=== PATIENT | male | born 1950 | race Caucasian/White ===

== ENCOUNTER 2017-08-05 08:12 | Outpatient (CLI) | payer OTHER ==
--- NOTE | ~2017-08-05 | OP ---
PATIENT NAME: NUVIA BOOKER MEDICAL RECORD: [id number] :54 LOCATION:LEELE[place] ADMISSION DATE: SURGEON: SANTIAGO SHER MD DATE OF OPERATION: 08/05/2017 PROCEDURE: Fiberoptic bronchoscopy. INDICATION: Mr. Booker is a 67-year-old gentleman who has a nonresolving pneumonia on the CT scan right middle lobe. Fiberoptic bronchoscopy was carried out to inspect the airway for any obstructive lesion. MONITORING: EKG, pulse, and blood pressure were monitored throughout the procedure. MEDICATIONS: Versed 7 mg IV in divided doses, fentanyl 100 mcg IV in divided doses, atropine 0.6 mg IM, morphine 4 mg IM. PROCEDURE IN DETAIL: After passing the bronchoscope through the mouth, the vocal cords were normal, moving equally on phonation. The epiglottis was normal. The vallecula was normal. The main trachea was normal. The héctor was sharp. The left main bronchus subsegment to the left upper lobe lingula, left lower lobe within normal range. No endobronchial lesion was seen. The right main bronchus was normal at start. At the origin of the right upper lobe segment, there was mucosal abnormality with folding. There was sparing of the right upper lobe segment and superior segment of the right lower lobe segment. There were also mucosal abnormalities all the way up from the origin of the right upper lobe segment to the right lower lobe segment. There was no mass was seen as such. The right middle lobe segments were patent. There was thick yellowish secretion coming out from the right middle lobe. Specimen endobronchial biopsy was taken at the takeoff of the superior segment of the right lower lobe. Washing was obtained from the right lower lobe, right middle lobe, and the superior segment of the right lower lobe segments. Specimen washing and endobronchial biopsy was obtained and sent for histopathology, routine culture sensitivity, fungus and cytology. COMPLICATIONS: There was nearly 2-3 mL blood loss. Overall, the patient tolerated the procedure very well. I discussed with the family, we will proceed with a PET scan. TRANSINT:[id number] Voice Confirmation ID: [id number] DOCUMENT ID: [id number] SANTIAGO SHER MD at 1340 CC: JENNI KIM [id number] DICTATION DATE: 08/05/17 1056 CONVENTIONS RESERVATIONIST: 08/05/17 1201 DEP CLI 08/05/17 [id number] [facility] [place] [address]
[2017-08-05] MEDS ORDERED: PROAIR HFA8.5 GM INH (08:48)
[2017-08-05] MEDS ORDERED: GLUCOPHAGE1000 MG PO (08:48)
[2017-08-05 08:54] LABS: APTT 24.3 SECONDS (22.8-39.4); INR 0.97 (0.85-1.17); PROTIME 12.5 SECONDS (11.6-15.0)
[2017-08-05 08:55] LABS: BASOPHILS 0.4 % (0-2); EOSINOPHILS 2.1 % (0-7); HEMATOCRIT 40.8 % (42.0-54.0); HEMOGLOBIN 14.1 g/dL (13.5-17.5); IMMATURE GRANULOCYTES 0.4 % (0-5); LYMPHOCYTES 29.2 % (15-50); MCH 29.9 pg (26.0-34.0); MCHC 34.6 g/dL (31.0-37.0); MCV 86.4 fL (80.0-100.0); MEAN PLATELET VOLUME 8.9 fL (7.4-10.4); MONOCYTES 10.6 % (2-11); NEUTROPHILS 57.3 % (40-80); PLATELET COUNT 249 10x3/uL (130-400); RBC 4.72 10x6/uL (4.20-6.10); RDW 12.9 % (11.5-14.5); WBC 8.2 10x3/uL (4.8-10.8)
[2017-08-06 18:10] LABS: AFB SPECIMEN PROCESSING Concentration (())
[2017-08-08 11:20] LABS: FUNGUS STAIN Final report (())
[2017-09-02 16:14] LABS: FUNGUS MYCOLOGY CULTURE Final report (())
[2017-09-30 10:22] LABS: ACID FAST CULTURE Negative (()); ACID FAST SMEAR Negative (())
== END 2017-08-05 15:20 | disposition home or self-care (01) ==
LOC: D.OPS 08:12
PROVIDERS: Internal Medicine Pulmonary Disease
DX: J18.9 Pneumonia, unspecified organism (principal); R59.0 Localized enlarged lymph nodes; K21.9 Gastro-esophageal reflux disease without esophagitis; J44.9 Chronic obstructive pulmonary disease, unspecified; Z87.891 Personal history of nicotine dependence; Z01.812 Encounter for preprocedural laboratory examination

== ENCOUNTER → 2017-09-18 07:12 | Outpatient (CLI) | payer OTHER ==
[~2017-09-18 07:12] MED LIST: AUGMENTIN 875-11 TAB PO; GLUCOPHAGE1000 MG PO; MEDROL DOSE PACK4 MG PO; MIRALAX17 GM PO; MUCINEX600 MG PO; PROAIR HFA8.5 GM INH; SYMBICORT 16010.2 GM INH
== END | disposition home or self-care (01) ==
LOC: D.RT 07:12
DX: R91.8 Other nonspecific abnormal finding of lung field (principal)

== ENCOUNTER 2017-09-24 05:00 | Day surgery (SDC) | payer OTHER ==
[2017-09-23 15:35] LABS: BASOPHILS 0.2 % (0-2); EOSINOPHILS 2.5 % (0-7); HEMATOCRIT 41.3 % (42.0-54.0); HEMOGLOBIN 14.3 g/dL (13.5-17.5); IMMATURE GRANULOCYTES 0.5 % (0-5); LYMPHOCYTES 34.6 % (15-50); MCHC 34.6 g/dL (31.0-37.0); MCV 86.8 fL (80.0-100.0); MONOCYTES 9.7 % (2-11); NEUTROPHILS 52.5 % (40-80); PLATELET COUNT 254 10x3/uL (130-400); RBC 4.76 10x6/uL (4.20-6.10); RDW 13.2 % (11.5-14.5); WBC 8.8 10x3/uL (4.8-10.8)
[2017-09-23 15:44] LABS: INR 0.87 (0.85-1.17); PROTIME 11.5 SECONDS (11.6-15.0)
[2017-09-23 15:45] LABS: APTT 24.5 SECONDS (22.8-39.4)
[2017-09-23 15:48] LABS: ALBUMIN 3.7 g/dL (3.4-5.0); ALKALINE PHOSPHATASE 102 U/L (46-116); ALT (SGPT) 26 U/L (10-68); BILIRUBIN - TOTAL 0.29 mg/dL (0.2-1.3); CALC OSMOLALITY 280 mosm/kg (275-300); CALCIUM 8.9 mg/dL (8.5-10.1); CARBON DIOXIDE 26.6 mmol/L (21.0-32.0); CHLORIDE - SERUM 102 mmol/L (98-107); GLUCOSE 159 mg/dL (74-106); POTASSIUM - SERUM 3.8 mmol/L (3.5-5.1); PROTEIN - SERUM 7.7 g/dL (6.4-8.2); SODIUM 139 mmol/L (136-145); UREA NITROGEN 13 mg/dL (7-18); eGFR NON AFRICAN AMERICAN 80 mL/min (90-120)
[2017-09-23 16:19] LABS: APPEARANCE CLEAR (CLEAR); BILIRUBIN NEGATIVE (NEGATIVE); COLOR YELLOW (YELLOW); GLUCOSE NEGATIVE (NEGATIVE); KETONE NEGATIVE (NEGATIVE); NITRITE NEGATIVE (NEGATIVE); PROTEIN NEGATIVE (NEGATIVE); UROBILINOGEN NORMAL (NORMAL)
[~2017-09-24] VITALS: Ht 177.8 cm; Wt 106.1 kg
--- NOTE | ~2017-09-24 | HP ---
PATIENT: NUVIA COOK MEDICAL RECORD: [id number] ACCOUNT: [id number] LOCATION:D.OPS : 52 ADMISSION DATE: 09/24/17 HISTORY AND PHYSICAL EXAMINATION NUVIA Bhatia (67yo, M) ID# [id number]. Date/Time09/17/2017 01:09CADGM1952Service Dept.NPP_[facility] ClinicProviderEDDEMETRI POOL MDInsuranceMed Primary: [facility] - [employer] Insurance # : [id number] Policy/Group # : [id number] Referring Provider Name : RENEE WRIGHT Employer Name : UNKNOWN Prescription: DSTPS - Member is eligible. Chief Complaint Mediastinal mass Patient's Care Team Referring Provider (): RENEE WRIGHT D: [facility], [address] [place] [phone], , Primary Care Provider: JENNI KIM DO: [address] [place] [phone], , Cardboard Inserter: EIMLY PAUL MD Patient's Pharmacies [facility] (ERX): [address] [facility] [phone], , Vitals BP:150/78 sitting R arm 09/17/2017 01:39 pm 154/80 sitting L arm 09/17/2017 01:40 pmHR:72/REG 09/17/2017 01:41 pmHt:5 ft 10 in 09/17/2017 01:31 pmWt:210 lbs 09/17/2017 01:41 pmBMI:30.1 09/17/2017 01:41 pmAllergies Reviewed Allergies NKDAMedications Reviewed Medications metFORMIN 1,000 mg tablet BID07/22/17 filledArgMattersight SystemsProAir HFA 90 mcg/actuation aerosol inhaler QID07/22/17 [facility] Scivantage SystemsVaccines Reviewed Vaccines Vaccine TypeDateAmt.RouteSiteLot #Mfr.Exp. DateDate on VISVIS GivenVaccinatorInfluenzainfluenza, injectable, nwiadppplxef61/12/18Problems Reviewed Problems Diabetes mellitus - Onset: 07/31/2017 Mediastinal lymphadenopathy - Onset: 09/09/2017 Family History Reviewed Family History Mother- Carcinoma of colonSocial History Reviewed Social History Cardiology Smoking Status: Never smoker Diabetes: Y Alcohol intake: None Marital status: Surgical History HISTORY AND PHYSICAL [id number] NUVIA COOK Reviewed Surgical History Bronchoscopy - 08/05/2017 Bronchoscopy - 08/05/2017 Past Medical History Reviewed Past Medical History Diabetes: Y - niidm Documents for Discussion N/A Screening None recorded. HPI Dyspnea Reported by patient. Quality: dyspnea; can't catch breath Severity: moderate Duration: for 2 years Onset/Timing: daily; at night; during daytime; wakes from sleep Context: with activity; at rest; when lying down Alleviating Factors: sitting up; relieved with inhaler Aggravating Factors: "WORSE WHEN LAYING FLAT" Associated Symptoms: chest pain/discomfort; fever mediastinal adenopathy Right middle lobe syndrome ROS Patient reports difficulty hearing but reports no ear pain. He reports shortness of breath when walking and shortness of breath when lying down but reports no chest pain, no arm pain on exertion, no palpitations, and no known heart murmur. He reports cough, wheezing, and shortness of breath but reports no coughing up blood. He reports muscle aches, muscle weakness, and arthralgias/joint pain but reports no back pain and no swelling in the extremities. He reports fatigue, hair loss, and cold intolerance. He reports no fever , no night sweats, no significant weight gain, no significant weight loss, and no exercise intolerance. He reports no dry eyes, no irritation, and no vision change. He reports no frequent nosebleeds and no nose/sinus problems. He reports no sore throat, n o bleeding gums, no snoring, no dry mouth, no mouth ulcers, no oral abnormalities, and no teeth problems. He reports no jugular vein distension and no swollen glands. He reports no abdominal pain, no vomiting, normal appetite, no diarrhea, not vomiting blo o d, no nausea, and no constipation. He reports no incontinence, no difficulty urinating, no hematuria, and no increased frequency. He reports no abnormal mole, no jaundice, and no rashes. He reports no loss of consciousness, no weakness, no numbness, no se i zures, no dizziness, and no headaches. He reports no depression, no sleep disturbances, feeling safe in relationship, and no alcohol abuse. He reports no swollen glands and no bruising. He reports no runny nose, no sinus pressure, no itching, no hives, an d no frequent sneezing. ROS as noted in the HPI Physical Exam Patient is a 67-year-old male. Constitutional: General Appearance: well nourished and well developed. Level of Distress: no acute distress. Ambulation: ambulating normally. Ears: Cerumen negative. Canal: no erythema or swelling. Tympanic Membrane: no bulging or fluid and perforated. HISTORY AND PHYSICAL [id number] NUVIA COOK Nasal: Nasal Mucosa: normal, no discharge, and pink and moist. Septum: not markedly deformed. Oropharynx: Lips, Teeth, and Gums normal dentition and lips. Oral Mu cosa no ulcer, mass, inflammation, swelling, or leukoplakia and moist. Palate: normal hard palate and soft palate. Tongue: no erythema, lesions, enlargement, or swelling. Tonsils: no enlargement or lesions. Posterior Pharynx no enlargement, erythema, exud ate, ulcers, mass, cobblestoning, or white patches. Neck: Neck: supple, trachea midline, no masses, and Full ROM. Thyroid: no enlargement or nodules and non-tender. Jugular Veins: no jugular venous distention or rose a waves present and normal jugular venous pressure. Lungs: Respiratory effort: unlabored. Inspection: normal curve and chest wall expansion; no deformity, tenderness, or swelling; and tactile fremitus present and equal on both sides. Auscultation: no rales/crackles or rhonchi and breath sounds normal and wheezing,expiratory,right midlung field. Percussion: no dullness, flatness, or hyperresonance. Cardiovascular: Precordial Exam: non displaced focal PMI. Heart Rate And Rhythm: normal heart rate and rhythm. Heart Sounds: no gallop, click, physiologically split S2, or pericardial friction rub and normal s1. Systolic Murmur: no systolic murmurs. Diastolic Murmur: no diastolic murmurs. Observation/Palpation of peripheral vascular system: no cyanosis. Abdomen: Inspection and Palpation: no tenderness or masses and soft and non-distended. Liver: non-tender and no hepatomegaly. Spleen: non-tender and no splenomegaly. Bowel Sounds: normal and no abdominal bruits. Lymphatic: no cervical lymph enlargement, axillary LAD, or supraclavicular LAD . Musculoskeletal:: Gait and Station: normal gait. Extremities: Inspection/Palpation of digits and nails: no clubbing, cyanosis, petechiae, ischemia, edema, or nodular lesions. Skin: Inspection and palpation: no rash, lesions, jaundice, ulcer, erythema, or induration and normal turgor. Neurologic: Mental Status/Orientation: oriented to person, place, problem/situation, and time. Mood/Affect: normal mood and affect. Sensation sensation normal. Cranial Nerves cranial nerves II - XII intact. Assessment / Plan mediastinal adenopathy Right middle lobe syndrome 1. Mediastinal lymphadenopathy R59.0: Localized enlarged lymph nodes Discussion Notes I have discussed the patient's disease process with him in detail as well as the alternative methods of treatment. We discussed bronchoscopy and mediastinoscopy including the expected benefits and risks which include bleeding, infection, stroke, , and imponderables. He understands all of the above and wishes to proceed with planned procedure. Obtain pulmonary function studies in 6 minute walk test HISTORY AND PHYSICAL [id number] NUVIA COOK We'll then schedule for bronchoscopy and mediastinoscopy ALEJANDRA POOL MD at 1448 CC: [id number] DICTATION DATE: 09/17/17 1330 RIBBON TIER: DM 09/23/17 0851 [facility] 09/24/17 [id number] [place] [address]
--- NOTE | ~2017-09-24 | OP ---
PATIENT NAME: NUVIA COOK MEDICAL RECORD: [id number] :54 LOCATION:D.OPS ADMISSION DATE: SURGEON: ALEJANDRA SCOTT MD DATE OF OPERATION: 09/24/2017 SURGEON: Alejandra Scott MD ANESTHESIA: General, Dr. Esquivel. OPERATION PERFORMED: 1. Mediastinoscopy with biopsies. 2. Flexible fiberoptic bronchoscopy with bronchial washings and bronchial biopsies. PREOPERATIVE DIAGNOSIS: Mediastinal adenopathy. POSTOPERATIVE DIAGNOSIS: Mediastinal adenopathy. INDICATION FOR OPERATION: Undiagnosed mediastinal lymphadenopathy. FINDINGS OF THE OPERATION: Lymphadenopathy with paratracheal lymphadenopathy. Frozen section demonstrated no malignancy, chronic inflammation with microcalcification. Flexible fiberoptic bronchoscopy demonstrated cobblestone mucosa, left upper lobe. Cultures were sent for aerobe, anaerobe, TB and fungus on the bronchial washings. The bronchial mucosal biopsies were sent for histology. The multiple lymph node biopsies were sent to pathology for further evaluation. ESTIMATED BLOOD LOSS: Less than 3 mL. DESCRIPTION OF PROCEDURE: After informed consent, adequate preoperative medication evaluation, the patient was brought to the operating room, placed on the table in the supine position. After induction of general endotracheal anesthesia and application of appropriate monitoring devices, the neck and chest prepped and draped in sterile field, utilizing Betadine scrub, alcohol, and Betadine solution. Betadine-impregnated drape was also used. A small transverse incision was made 2 cm above the sternal notch. Dissection carried down to the fascia. The midline was opened. The isthmus of the thyroid was elevated cephalad and the pretracheal fascia entered. The scope was placed. Utilizing sharp and blunt dissection, the scope was advanced to the héctor. There was a large left paratracheal node that was very hard. This was biopsied multiple times. Attention was then turned toward the subcarinal area. Another node was encountered and biopsies taken. An additional anterior tracheal node was also biopsied. Frozen section demonstrated no malignancy and chronic inflammation. The wound was irrigated. Instrument count and sponge count were correct times 2. Neck was closed in layers utilizing 3-0 Vicryl on the platysma, 5-0 subcuticular Monocryl on the skin. Sterile dressing was applied. The patient then underwent flexible fiberoptic bronchoscopy with bronchial washings from the left upper and left lower lobes. These were sent for cultures and cytology. In the upper lobe, random biopsies were performed in the cobblestone mucosal area. OPERATIVE REPORT [id number] NUVIA COOK There was no bleeding. The scope was withdrawn. The patient awakened and transferred to postanesthesia recovery in satisfactory condition. TRANSINT:[id number] Voice Confirmation ID: [id number] DOCUMENT ID: [id number] ALEJANDRA SCOTT MD at 1448 CC: [id number] DICTATION DATE: 09/24/17910 CLAIMS COORDINATOR: 09/24/17 1238 [facility] 09/24/17 [address] [id number] [place] [address]
[~2017-09-24 05:00] MED LIST changes: -AUGMENTIN 875-11 TAB PO; -MEDROL DOSE PACK4 MG PO; -MIRALAX17 GM PO; -MUCINEX600 MG PO; -SYMBICORT 16010.2 GM INH
[2017-09-24 05:24] VITALS: BP 137/84; Ht 177.8 cm; Wt 106.1 kg
[2017-09-25 18:11] LABS: ACID FAST SMEAR Negative (()); AFB SPECIMEN PROCESSING Concentration (())
[2017-09-25 18:11] LABS: ACID FAST SMEAR Negative (()); AFB SPECIMEN PROCESSING Concentration (())
[2017-09-26 12:17] LABS: FUNGUS STAIN Final report (())
[2017-09-26 12:17] LABS: FUNGUS STAIN Final report (())
[2017-10-27 15:09] LABS: FUNGUS MYCOLOGY CULTURE Final report (())
[2017-10-27 15:09] LABS: FUNGUS MYCOLOGY CULTURE Final report (())
== END 2017-09-24 10:50 | disposition home or self-care (01) ==
LOC: D.OPS 05:00 → D.PAN 07:30 → D.OPS 07:30
PROVIDERS: Internal Medicine Cardiovascular Disease
DX: R59.0 Localized enlarged lymph nodes (principal); E11.9 Type 2 diabetes mellitus without complications; K21.9 Gastro-esophageal reflux disease without esophagitis; Z01.812 Encounter for preprocedural laboratory examination

== ENCOUNTER 2017-10-02 08:23 | Inpatient (IN) | payer OTHER ==
[~2017-10-02] VITALS: Ht 177.8 cm; Wt 107.5 kg
--- NOTE | ~2017-10-02 | CN ---
PATIENT NAME:NUVIA BOOKER MEDICAL RECORD: [id number] : 54 LOCATION:D. D.2134 ADMIT DATE: 10/02/17 ACCOUNT: [id number] CONSULTING PHYSICIAN: SANTIAGO SHER MD REFERRING PHYSICIAN: GORDON POOL MD DATE OF CONSULTATION: 10/02/2017 CONSULT REQUESTING PHYSICIAN: Gordon Pool MD REASON FOR CONSULTATION: Right middle lobe syndrome, right middle lobe atelectasis and pneumonia. HISTORY OF PRESENT ILLNESS: Mr. Booker is a 67-year-old gentleman who was initially seen by me with abnormal CT scan of the chest and pneumonia of the right middle lobe. Initial bronchoscopy showed that there is squamous metaplasia of the bronchial tube, but the cultures were negative. The PET scan was positive, especially mediastinal lymphadenopathy and he underwent by the mediastinoscopy, lymph node biopsy by Dr. Pool. The biopsy was negative for any malignancy, lymphoma, or granulomatous process. There was some patchy calcifications. Now, the patient was seen in Dr. Pool's office. The patient is complaining of orthopnea, PND, and shortness of breath. He denies any fever and chill. There are no night sweats. There is no weight loss. He has dyspnea on exertion as well as orthopnea. REVIEW OF SYSTEMS: As in history of present illness. PAST MEDICAL HISTORY: 1. COPD. 2. History of pneumonia. 3. Mediastinal lymphadenopathy. 4. Constipation. PAST SURGICAL HISTORY: 1. Back surgery. 2. Appendectomy. 3. Pelvic bone ligament repair surgery after a crush injury. 4. Ear surgery for hearing loss. ALLERGIES: No known drug allergies. MEDICATIONS: [employer] [place] is reviewed. PERSONAL AND SOCIAL HISTORY: The patient has a remote history of smoking. He is a nondrinker. FAMILY HISTORY: Significant for cancer and diabetes. PHYSICAL EXAMINATION: GENERAL: Now, the patient is lying comfortably in bed. He is not in acute distress. VITAL SIGNS: The blood pressure is 139/83, pulse is 97, respiration is 20, SpO2 94% on room air, temperature 97.9. HEENT: Conjunctivae are pink. Sclerae are not icteric. NECK: Supple. No JVD, no lymphadenopathy, no bruits. CHEST: There is a crackle at the right side. No wheezing. CONSULT REPORT [id number] BROWN,NUVIA FELICITA HEART: Rate and rhythm regular, normal sound, no murmur. ABDOMEN: Soft, bowel sounds present. No hepatosplenomegaly. RECTAL: Deferred. EXTREMITIES: No cyanosis, no clubbing, no pedal edema. CENTRAL NERVOUS SYSTEM: The patient is awake and alert. There is no obvious cranial nerve abnormality. The gait was not tested. IMPRESSION: 1. Dyspnea secondary to right middle lobe pneumonia. 2. Chronic obstructive pulmonary disease acute exacerbation. 3. Orthopnea. 4. Right middle lobe pneumonia. 5. Mediastinal lymphadenopathy. The biopsy was negative. The PET scan was positive. 6. Ex-smoker. RECOMMENDATION: 1. Start on Zosyn and Levaquin to cover for anaerobes and Gram-negative kathe. 2. Methylprednisolone IV. 3. Albuterol/ipratropium nebulizer. 4. Brovana, budesonide nebulizer. 5. Supplemental oxygen if required. 6. Check proBNP, follow up labs and chest radiograph in the morning. We will proceed with fiberoptic bronchoscopy in the morning. Discussed with Dr. Pool as well as with the family. Dr. Pool, thank you for involving me in the care of Mr. Booker. TRANSINT:[id number] Voice Confirmation ID: [id number] DOCUMENT ID: [id number] SANTIAGO SHER MD at 1208 CC: JENNI KIM [id number] DICTATION DATE: 10/02/17 1623 MACHINE OVERHAULER: 10/02/17 1756 DIS IN 10/05/17 [id number] [place] [address]
--- NOTE | ~2017-10-02 | PRO ---
PATIENT:NUVIA BOOKER MEDICAL RECORD: [id number] : 54 LOCATION:D.M2 D.2134 ADMISSION DATE: 10/02/17 PROCEDURE PERFORMED BY: SANTIAGO SHER MD DATE OF PROCEDURE: 10/03/2017 PROCEDURE: Fiberoptic bronchoscopy. INDICATION: Mr. Booker is a 67-year-old gentleman who was admitted with shortness of breath and atelectasis and collapse of the right middle lobe. There is significant lymphadenopathy. MONITORING: EKG, pulse, blood pressure, SpO2 were monitored throughout the procedure. MEDICATIONS: Morphine 4 mg IM, Versed 3 mg IV in divided doses, and fentanyl 50 mcg times 1. PROCEDURE IN DETAIL: Mr. Booker is a 67-year-old gentleman who has mediastinal lymphadenopathy as well as atelectasis and pneumonia of the right middle lobe. Fiberoptic bronchoscopy was carried out to inspect the airway and for any mucus plugging and any endobronchial lesion. The epiglottis was normal. There was atrophy of the right vocal cord, moving equally on phonation. The pyriform sinuses were normal. The main trachea was normal. The héctor was sharp. The right main bronchus was normal. There was anatomical variation of the right upper lobe segments. The right middle lobe bronchus was patent. The subsegment to the right lower lobe was within normal range. They were patent. There was mucosal abnormality and there was also cobblestoning of the bronchial wall. No endobronchial lesion was seen. The left main bronchus subsegment to the left upper lobe, left lower segment within normal range. There was no endobronchial lesion was seen. Specimen washing was obtained from the right middle lobe and right lower lobe, sent for routine culture and sensitivity, AFB, and fungus. Overall, the patient tolerated the procedure very well. TRANSINT:[id number] Voice Confirmation ID: [id number] DOCUMENT ID: [id number] SANTIAGO SHER MD at 1208 CC: [id number] DICTATION DATE: 10/03/17 1825 SUPERVISOR CONCR[employer] PLANT: 10/04/17 0113 DIS [place] 10/05/17 [facility] [address] [place] [id number]
--- NOTE | ~2017-10-02 | HP ---
PATIENT: NUVIA COOK MEDICAL RECORD: [id number] ACCOUNT: [id number] LOCATION:[address] : 54 ADMISSION DATE: 10/02/17 HISTORY AND PHYSICAL EXAMINATION NUVIA Bhatia (67yo, M) ID# [id number]. Date/Time10/02/2017 09:[id number] Dept.NPP_[facility] ClinicProviderDEMETRI POOL MDInsuranceMed Primary: [facility] - [employer] Insurance # : [id number] Policy/Group # : [id number] Referring Provider Name : RENEE WRIGHT Employer Name : UNKNOWN Prescription: DSTPS - Member is eligible. 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 Helper: EMILY PAUL MD Patient's Pharmacies [facility] (ERX): [id number] [facility] [id number], , Vitals BP:144/82 sitting R arm 10/02/2017 09:37 amHR:62/REG 10/02/2017 09:37 amHt:5 ft 10 in 10/02/2017 09:33 amWt:235.6 lbs 10/02/2017 09:38 amBMI:33.8 10/02/2017 09:38 amAllergies Reviewed Allergies NKDAMedications Reviewed Medications metFORMIN 1,000 mg tablet BID07/22/17 [facility] [employer] [facility] HFA 90 mcg/actuation aerosol inhaler QID07/22/17 [facility] Reviewed Vaccines Vaccine TypeDateAmt.RouteSCritical access hospital #Mfr.Exp. DateDate on VISVIS GivenVaccinatorInfluenzainfluenza, injectable, odstxyzhtsct33/12/18Problems Reviewed Problems Diabetes mellitus - Onset: 07/31/2017 Mediastinal lymphadenopathy - Onset: 09/09/2017 Family History Reviewed Family History Mother- Carcinoma of colonSocial History Reviewed Social History Cardiology Smoking Status: Never smoker HISTORY AND PHYSICAL [id number] NUVIA COOK Diabetes: Y Alcohol intake: None Marital status: Surgical History Reviewed Surgical History Mediastinoscpy w/medstnl bx - 09/24/2017 - WITH BRONCH Bronchoscopy - 08/05/2017 Bronchoscopy - 08/05/2017 09/23/17 no PA required for 09/24/17 procedure per [employer] automated system. Ref #: [id number]. *SJ Past Medical History Reviewed Past Medical History Diabetes: Y - niidm Documents for Discussion N/A Screening None recorded. HPI Post-Op Visit Reported by patient. Onset/Timing: date of surgery:; 09/24/17 Quality: procedure:; MEDIASTINOSCOPY WITH BX; BRONCHOSCOPY Context: operative findings:; pathology findings: mmediastinal adenopathy Dyspnea ROS Patient reports difficulty hearing but reports no ear pain. He reports shortness of breath when walking and shortness of breath when lying down but reports no chest pain, no arm pain on exertion, no palpitations, and no known heart murmur. He reports cough, wheezing, and shortness of breath but reports no coughing up blood. He reports muscle aches, muscle weakness, and arthralgias/joint pain but reports no back pain and no swelling in the extremities. He reports fatigue, hair loss, and cold intolerance. He reports no fever, no night sweats, no significant weight gain, no sign ificant weight loss, and no exercise intolerance. He reports no dry eyes, no irritation, and no vision change. He reports no frequent nosebleeds and no nose/sinus problems. He reports no sore throat, no bleeding gums, no snoring, no dry mouth, no mouth ul c ers, no oral abnormalities, and no teeth problems. He reports no jugular vein distension and no swollen glands. He reports no abdominal pain, no vomiting, normal appetite, no diarrhea, not vomiting blood, no nausea, and no constipation. He reports no inco n tinence, no difficulty urinating, no hematuria, and no increased frequency. He reports no abnormal mole, no jaundice, and no rashes. He reports no loss of consciousness, no weakness, no numbness, no seizures, no dizziness, and no headaches. He reports no depression, no sleep disturbances, feeling safe in relationship, and no alcohol abuse. He reports no swollen glands and no bruising. He reports no runny nose, no sinus pressure, no itching, no hives, and no frequent sneezing. Physical Exam Patient is a 67-year-old male. Constitutional: General Appearance: well nourished and well developed. Level of Distress: no acute distress. Ambulation: ambulating normally. Ears: Cerumen negative. Canal: no erythema or swelling. Tympanic Membrane: no HISTORY AND PHYSICAL [id number] BROWN,NUVIA FELICITA bulging or fluid and perforated. Nasal: Nasal Mucosa: normal, no discharge, and pink and moist. Septum: not markedly deformed. Oropharynx: Lips, Teeth, and Gums normal dentition and lips. Oral Mucosa no ulcer, mass, inflammation, swelling, or leukoplakia and moist. Palate: normal hard palate and soft palate. Tongue: no erythema, lesions, enlargement, or swelling. Tonsils: no enlargement or lesions. Posterior Pharynx no enlargement, erythema, exudate, ulcers, mass, cobblestoning, or white patches. Neck: Neck: supple, trachea midline, no masses, and Full ROM; neck incision healing well. Thyroid: no enlargement or nodules and non-tender. Jugular Veins: no jugular venous distention or rose a waves present and normal jugular venous pressure. Lungs: Respiratory effort: unlabore d. Inspection: normal curve and chest wall expansion; no deformity, tenderness, or swelling; and tactile fremitus present and equal on both sides. Auscultation: no rales/crackles or rhonchi and breath sounds normal and wheezing,expiratory,right midlung field. Percussion: no dullness, flatness, or hyperresonance. Cardiovascular: Precordial Exam: non displaced focal PMI. Heart Rate And Rhythm: normal heart rate and rhythm. Heart Sounds: no gallop, click, physiologically split S2, or pericardial friction rub and normal s1. Systolic Murmur: no systolic murmurs. Diastolic Murmur: no diastolic murmurs. Observation/Palpation of peripheral vascular system: no cyanosis. Abdomen: Inspection and Palpation: no tenderness or masses and soft and non-distended. Liver: no n-tender and no hepatomegaly. Spleen: non-tender and no splenomegaly. Bowel Sounds: normal and no abdominal bruits. Lymphatic: no cervical lymph enlargement, axillary LAD, or supraclavicular LAD. Musculoskeletal:: Gait and Station: normal gait. Extremities: Inspection/Palpation of digits and nails: no clubbing, cyanosis, petechiae, ischemia, edema, or nodular lesions. Skin: Inspection and palpation: no rash, lesions, jaundice, ulcer, erythema, or induration and normal turgor. Neurologic: Mental Status/Orientation: oriented to person, place, problem/situation, and time. Mood/Affect: normal mood and affect. Sensation sensation normal. Cranial Nerves cranial nerves II - XII intact. Assessment / Plan right middle lobe syndrome Mediastinal adenopathy 1. Mediastinal lymphadenopathy R59.0: Localized enlarged lymph nodes Discussion Notes the patient continues progressive shortness of breath Weight gain Chest x-ray right middle lobe syndrome With progressive shortness breath and dyspnea unable to lie flat at night think that HISTORY AND PHYSICAL [id number] NUVIA COOK he would benefit from admission and further workup ALEJANDRA POOL MD at 1448 CC: [id number] DICTATION DATE: 10/02/17 0940 ENROLLMENT NURSE: 10/02/17 1107 ADM IN [place] [id number] [place] [id number]
--- NOTE | ~2017-10-02 | EC ---
PATIENT:NUVIA COOK DATE OF SERVICE: 10/02/17 SEX: M MEDICAL RECORD: [id number] DATE OF : 54 LOCATION:D.M2 D.213 AGE OF PATIENT: 67 ADMISSION DATE: 10/02/17 REFERRING PHYSICIAN: INTERPRETING PHYSICIAN: CARY VALADEZ MD ECHOCARDIOGRAM REPORT ECHO CHARGES 4 ECHO COMPLETE Date: 10/02 CLINICAL DIAGNOSIS: MEDIASTINAL LYMPHADENOPATY, RML SYNDROME ECHOCARDIOGRAPHIC MEASUREMENTS (adult normal given) AC root (d.<3.7cm) 4.2 cm LV Septum d (<1.2 cm> 1.6 cm Valve Excursion 2.2 cm LV Septum (systole) 1.7 cm Left Atria (s.<4.0cm> 3.9 cm LVPW d(<1.2cm) 1.6 cm RV (d.<2.3cm) 5.1 cm LVPW (sytole) 2.0 cm LV diastole(<5.6CM) 5.1 cm MV E-F(>70mm/sec) cm LV systole 3.1 cm LVOT Diameter 2.2 cm MV exc.(>10mm) cm Est.ejection fraction (50-75%) % DOPPLER: LVIT cm/sec A 87.0 cm/sec E 74.0 cm/sec LA cm/sec RVSP 19 mmHg LVOT 112 cm/sec AOP1/2T m/s Asc. Ao 197 cm/sec RVOT 80 cm/sec RA cm/sec PA 130 cm/sec AV Gradient Peak 15.59mmHg AV Mean 7.42 mmHg AV Area 2.6 cm MV Gradient Peak 4.37 mmHg MV Mean 1.71 mmHg MV Area cm COMMENTS: Cooker Tender: Cheryl ELLIS Obstetrics Technician: 3 Dr. Echeverria TAPE# PACS Pericardial Effusion N DATE OF SERVICE: 10/02/2017 Adequate 2D echo, color flow and spectral Doppler, and M-mode. LVH is present. LV internal dimension is normal. Wall motion is normal. EF is greater than or equal to 55%. Aortic valve is tricuspid. No evidence of stenosis by Doppler interrogation. Left atrium is normal at 3.9 cm. Mitral valve shows no prolapse. Trace MR. Right-sided chambers are normal. Trace TR. TRANSINT:[id number] Voice Confirmation ID: [id number] DOCUMENT ID: [id number] ECHOCARDIOGRAM REPORT [id number] NUVIA COOK GREGORY A MD at 0804 CC: [id number] DICTATION DATE: 10/02/17 164 PATIENTS TRANSPORTER: 10/02/171911 ADM IN [facility] [address] [place] [id number]
[2017-10-02 11:19] VITALS: BP 139/83; BMI 33.7
[2017-10-02] MEDS ORDERED: MIRALAX17 GM PO (11:28)
[2017-10-02 12:41] LABS: BASOPHILS 0.2 % (0-2); EOSINOPHILS 2.4 % (0-7); HEMATOCRIT 39.9 % (42.0-54.0); HEMOGLOBIN 13.8 g/dL (13.5-17.5); IMMATURE GRANULOCYTES 0.3 % (0-5); LYMPHOCYTES 29.1 % (15-50); MCH 29.9 pg (26.0-34.0); MCHC 34.6 g/dL (31.0-37.0); MCV 86.6 fL (80.0-100.0); MEAN PLATELET VOLUME 8.9 fL (7.4-10.4); MONOCYTES 12.2 % (2-11); NEUTROPHILS 55.8 % (40-80); PLATELET COUNT 262 10x3/uL (130-400); RBC 4.61 10x6/uL (4.20-6.10); WBC 8.7 10x3/uL (4.8-10.8)
[2017-10-02 13:08] LABS: ALBUMIN 3.5 g/dL (3.4-5.0); BILIRUBIN - TOTAL 0.52 mg/dL (0.2-1.3); CALC OSMOLALITY 277 mosm/kg (275-300); CALCIUM 9.2 mg/dL (8.5-10.1); CARBON DIOXIDE 24.1 mmol/L (21.0-32.0); CHLORIDE - SERUM 104 mmol/L (98-107); CREATININE - SERUM 0.8 mg/dL (0.6-1.3); GLUCOSE 135 mg/dL (74-106); PROTEIN - SERUM 7.4 g/dL (6.4-8.2); SODIUM 137 mmol/L (136-145); UREA NITROGEN 18 mg/dL (7-18); eGFR NON AFRICAN AMERICAN > 90 mL/min (90-120)
[2017-10-02 13:09] LABS: ALT (SGPT) 145 U/L (10-68)
[2017-10-02 13:20] LABS: ALKALINE PHOSPHATASE 89 U/L (46-116)
[2017-10-02 14:03] LABS: COLOR YELLOW (YELLOW)
[2017-10-02 14:04] LABS: APPEARANCE CLEAR (CLEAR); BILIRUBIN NEGATIVE (NEGATIVE); GLUCOSE NEGATIVE (NEGATIVE); KETONE NEGATIVE (NEGATIVE); NITRITE NEGATIVE (NEGATIVE); PROTEIN NEGATIVE (NEGATIVE); SPECIFIC GRAVITY 1.015 (1.005-1.020); UROBILINOGEN NORMAL (NORMAL)
[2017-10-02 15:44] LABS: APTT 24.4 SECONDS (22.8-39.4); INR 0.96 (0.85-1.17); PROTIME 12.4 SECONDS (11.6-15.0)
[2017-10-02 17:25] VITALS: BP 146/77
[2017-10-02 20:55] VITALS: BP 133/79
[2017-10-03] VITALS (9 sets, daily range): BP systolic 118–136; BP diastolic 63–79; Ht 177.8 cm; Wt 107.5 kg
[2017-10-03 07:28] LABS: HEMATOCRIT 40.8 % (42.0-54.0); HEMOGLOBIN 14.1 g/dL (13.5-17.5); MCH 29.7 pg (26.0-34.0); MCHC 34.6 g/dL (31.0-37.0); MCV 85.9 fL (80.0-100.0); MEAN PLATELET VOLUME 8.9 fL (7.4-10.4); RBC 4.75 10x6/uL (4.20-6.10); RDW 12.9 % (11.5-14.5)
[2017-10-03 07:30] LABS: WBC 13.1 10x3/uL (4.8-10.8)
[2017-10-03 07:42] LABS: CALC OSMOLALITY 284 mosm/kg (275-300); CALCIUM 8.7 mg/dL (8.5-10.1); CARBON DIOXIDE 20.9 mmol/L (21.0-32.0); CHLORIDE - SERUM 103 mmol/L (98-107); POTASSIUM - SERUM 4.2 mmol/L (3.5-5.1); SODIUM 137 mmol/L (136-145); UREA NITROGEN 19 mg/dL (7-18); eGFR NON AFRICAN AMERICAN 80 mL/min (90-120)
[2017-10-03 07:50] LABS: GLUCOSE 252 mg/dL (74-106)
[2017-10-04] VITALS: BP 120/70
[2017-10-04 04:00] VITALS: BP 125/78
[2017-10-04 08:36] VITALS: BP 120/75
[2017-10-04 11:34] VITALS: BP 143/73
[2017-10-04 15:42] VITALS: BP 147/75
[2017-10-04 17:09] LABS: ACID FAST SMEAR Negative (()); AFB SPECIMEN PROCESSING Concentration (())
[2017-10-04 19:00] VITALS: BP 130/65
[2017-10-05 03:51] VITALS: BP 133/75
[2017-10-05 07:51] VITALS: BP 149/88
[2017-10-05 11:21] VITALS: BP 142/78
[2017-10-05] MEDS ORDERED: AUGMENTIN 875-11 TAB PO (12:55)
[2017-10-05] MEDS ORDERED: MUCINEX600 MG PO (12:57)
[2017-10-05] MEDS ORDERED: SYMBICORT 16010.2 GM INH (12:57)
[2017-10-05] MEDS ORDERED: MEDROL DOSE PACK4 MG PO (12:58)
[2017-10-06 12:10] LABS: FUNGUS STAIN Final report (())
[2017-10-06 16:13] LABS: HISTOPLASMA GAL MANNAN AG SER <0.5 (<0.5 ng/mL)
[2017-10-10 18:10] LABS: FUNGUS CULTURE RESULT 1 Candida albicans (())
[2017-10-10 18:10] LABS: FUNGAL - ASP FLAVUS Negative (Neg:<1:1); FUNGAL - ASP NIGER Negative (Neg:<1:1); FUNGAL - ASPER FUMIGATUS Negative (Neg:<1:1)
[2017-10-30 11:19] LABS: FUNGUS MYCOLOGY CULTURE Final report (())
== END 2017-10-05 14:56 | disposition home or self-care (01) | DRG 205 ==
LOC: D.RAD 08:23 → D.M2 10:57
PROVIDERS: Internal Medicine Cardiovascular Disease; Internal Medicine Pulmonary Disease
PROC: 0B958ZZ Drainage of Right Middle Lobe Bronchus, Via Natural or Artificial Opening Endoscopic (ICD-10-PCS; 2017-10-03)
PROC: 0B968ZZ Drainage of Right Lower Lobe Bronchus, Via Natural or Artificial Opening Endoscopic (ICD-10-PCS; principal; 2017-10-03 12:51)
DX: J98.19 Other pulmonary collapse (principal); J18.9 Pneumonia, unspecified organism; B39.2 Pulmonary histoplasmosis capsulati, unspecified; J44.0 Chronic obstructive pulmonary disease with (acute) lower respiratory infection; J44.1 Chronic obstructive pulmonary disease with (acute) exacerbation; J98.11 Atelectasis; K59.00 Constipation, unspecified; R59.1 Generalized enlarged lymph nodes; E11.9 Type 2 diabetes mellitus without complications; J98.09 Other diseases of bronchus, not elsewhere classified; Z87.891 Personal history of nicotine dependence

== ENCOUNTER → 2017-10-16 09:12 | Outpatient (CLI) | payer OTHER ==
[2017-10-03 13:11] VITALS: BMI 32.8
[~2017-10-16 09:12] MED LIST changes: +AUGMENTIN 875-11 TAB PO; +MEDROL DOSE PACK4 MG PO; +MIRALAX17 GM PO; +MUCINEX600 MG PO; +SYMBICORT 16010.2 GM INH
== END | disposition home or self-care (01) ==
LOC: D.RAD 08:53
DX: J90 Pleural effusion, not elsewhere classified (principal)